=== PATIENT | female | born 2000 | race Caucasian/White ===

== ENCOUNTER 2018-05-31 22:43 | Inpatient (IN) | payer MEDICAID ==
[2018-06-01] MEDS ORDERED: CARBOPROST 250 MCG INJ IM ×2 (00:30→10:30)
[2018-06-01] MEDS ORDERED: OXYCODONE/ACETAMINOPHEN (5/325) TAB PO (00:30)
[2018-06-01] MEDS ORDERED: METHYLERGONOVINE 0.2 MG INJ IM ×2 (00:30→10:30)
[2018-06-01] MEDS ORDERED: OXYTOCIN 30 UNITS/LR 500 ML IV ×3 (00:30→10:30)
[2018-06-01] MEDS ORDERED: IBUPROFEN 600 MG TAB PO (00:30)
[2018-06-01] MEDS ORDERED: MISOPROSTOL 200 MCG TAB PR ×2 (00:30→10:30)
[2018-06-01] MEDS: LACTATED RINGER'S 1,000 ML IV (01:34)
[2018-06-01 01:45] LABS: ADD MAN DIFF? NO
[2018-06-01 01:50] LABS: WHITE BLOOD COUNT 13.9 10^3/ul (4.8-10.8)
[2018-06-01 01:50] LABS: BASOPHILS % 0.2 % (0.0-2.0); EOSINOPHILS # 0.1 10^3/ul (0.0-0.5); EOSINOPHILS % 0.6 % (0.0-7.0); HEMATOCRIT 36.8 % (37.0-47.0); HEMOGLOBIN 12.8 g/dl (12.0-16.0); LYMPHOCYTES # 2.4 10^3/ul (0.8-2.9); LYMPHOCYTES % 17.6 % (18.0-55.0); MEAN CORPUSCULAR HEMOGLOBIN 32.3 pg (29.0-33.0); MEAN CORPUSCULAR HGB CONC 34.8 g/dl (32.0-37.0); MEAN CORPUSCULAR VOLUME 92.9 fl (72.0-104.0); MEAN PLATELET VOLUME 9.3 fl (7.4-10.4); MONOCYTE # 1.1 10^3/ul (0.3-0.9); MONOCYTES % 8.1 % (0.0-13.0); NEUTROPHIL # 10.1 10^3/ul (1.6-7.5); NEUTROPHILS % 73.1 % (30.0-74.0); PLATELET COUNT 271 10^3/UL (140-415); RED BLOOD COUNT 3.96 10^6/ul (4.20-5.40); RED CELL DISTRIBUTION WIDTH 13.6 % (11.5-14.5)
[2018-06-01] MEDS: OXYTOCIN 30 UNITS/LR 500 ML IV ×3 (01:55→13:29)
[2018-06-01 02:06] LABS: INR 0.84; PROTIME 11.6 Sec (11.9-14.9); PT RATIO 0.9
[2018-06-01 02:07] LABS: PARTIAL THROMBOPLASTIN TIME 28.6 Sec (23.0-35.0)
[2018-06-01 03:09] LABS: HEPATITIS B SURFACE ANTIGEN NEGATIVE (NEGATIVE)
[2018-06-01] MEDS ORDERED: FENTAnyl 2MCG/ML-ROPIV 0.2% 100 ML (04:25)
[2018-06-01] MEDS ORDERED: LACTATED RINGER'S 1,000 ML IV (04:29)
[2018-06-01] MEDS ORDERED: FENTAnyl 2MCG/ML-ROPIV 0.2% 100 ML BAG EPI (05:00)
[2018-06-01] MEDS ORDERED: NALOXONE (0.4 MG/ML) INJ IV (05:00)
[2018-06-01] MEDS ORDERED: SOD CHLORIDE 0.9% 1,000 ML IV (06:15)
[2018-06-01] MEDS: BUTORPHANOL 2 MG INJ IV (07:46)
[2018-06-01] MEDS: LIDOCAINE 1% (MPF) 30 ML INJ INJ (08:54)
[2018-06-01] MEDS ORDERED: ZOLPIDEM 5 MG TAB PO (10:30)
[2018-06-01] MEDS ORDERED: ACETAMINOPHEN 325 MG TAB PO (10:30)
[2018-06-01] MEDS ORDERED: DIPHENHYDRAMINE 25 MG CAP PO (10:30)
[2018-06-01] MEDS: LACTATED RINGER'S 1,000 ML IV* ×2 (10:30→18:30)
[2018-06-01] MEDS ORDERED: HYDROCODONE/APAP (5/325) TAB PO (10:30)
[2018-06-01] MEDS: BENZOCAINE 20% 56 ML SPRAY TOP (11:57)
[2018-06-01] MEDS: IBUPROFEN 800 MG TAB PO ×3 (11:57→23:38)
[2018-06-01] MEDS: LANOLIN HPA 1 PKT TOP (11:57)
[2018-06-01] MEDS: WITCH HAZEL/GLYCERIN PAD PR (11:57)
[2018-06-01 21:59] LABS: RAPID PLASMA REAGIN NONREACTIVE (NR)
[2018-06-02] MEDS: IBUPROFEN 800 MG TAB PO ×5 (06:00→23:51)
[2018-06-02 07:30] LABS: ADD MAN DIFF? NO
[2018-06-02 07:32] LABS: BASOPHIL # 0.1 10^3/ul (0.0-0.1); BASOPHILS % 0.4 % (0.0-2.0); EOSINOPHILS # 0.1 10^3/ul (0.0-0.5); EOSINOPHILS % 0.9 % (0.0-7.0); HEMATOCRIT 31.6 % (37.0-47.0); HEMOGLOBIN 10.4 g/dl (12.0-16.0); LYMPHOCYTES # 2.8 10^3/ul (0.8-2.9); MEAN CORPUSCULAR HEMOGLOBIN 31.8 pg (29.0-33.0); MEAN CORPUSCULAR HGB CONC 32.9 g/dl (32.0-37.0); MEAN CORPUSCULAR VOLUME 96.6 fl (72.0-104.0); MEAN PLATELET VOLUME 9.2 fl (7.4-10.4); MONOCYTE # 1.2 10^3/ul (0.3-0.9); MONOCYTES % 9.3 % (0.0-13.0); NEUTROPHIL # 8.6 10^3/ul (1.6-7.5); NEUTROPHILS % 66.9 % (30.0-74.0); PLATELET COUNT 184 10^3/UL (140-415); RED BLOOD COUNT 3.27 10^6/ul (4.20-5.40); RED CELL DISTRIBUTION WIDTH 14.2 % (11.5-14.5)
[2018-06-02 07:32] LABS: WHITE BLOOD COUNT 12.9 10^3/ul (4.8-10.8)
[2018-06-02] MEDS: SENNA/DOCUSATE NA (8.6MG/50MG) TAB PO ×2 (08:42→20:57)
[2018-06-02] MEDS: MAGNESIUM HYDROXIDE 30ML CUP PO (08:42)
[2018-06-03] MEDS: IBUPROFEN 800 MG TAB PO ×2 (06:18→12:00)
[2018-06-03] MEDS: MEASLES,MUMPS,RUBELLA VACCINE INJ SC* (09:00)
[2018-06-03] MEDS: VARICELLA VACCINE LIVE/PF 1,350 UNIT/0.5 ML ML SC* (09:00)
[2018-06-03] MEDS: DIPHTH/TET/ACEL PERTUSS (ADULT) 0.5 ML VIAL IM* (10:55)
== END 2018-06-03 16:00 | disposition home or self-care (01) | DRG 807 ==
LOC: OBT 22:43 → L-D 22:44 → PP1 06-01 10:18
PROVIDERS: Obstetrics & Gynecology
PROC: 10E0XZZ Delivery of Products of Conception, External Approach (ICD-10-PCS; principal; 2018-06-01)
DX: O70.9 Perineal laceration during delivery, unspecified (principal); Z37.0 Single live birth; Z3A.40 40 weeks gestation of pregnancy; Z23 Encounter for immunization
CPT/HCPCS: 62319; 85025; 85610; 85730; 86592; 86850; 86900; 86901; 87340; 90686; 90715; 90716